=== PATIENT | male | born 1955 | race African-American/Black ===

== ENCOUNTER 2018-02-01 01:36 | Inpatient (IN) | payer SELFPAY ==
[~2018-02-01] VITALS: Ht 172.7 cm; Wt 61.2 kg
--- NOTE | 2018-02-01 02:25 | PHYS DOC ---
Adult General Chief Complaint Chief Complaint: ALTERED MENTAL STATUS HPI HPI Patient is a 62-year-old male who presents with report of mental status change that has been worsening over the last several weeks. Family indicates that they had gotten a call tonight indicating that patient was trying to get ready for work and patient has been retired for quite some time now. Patient denies being in any pain. He does have a cough that family says is chronic. Additional history is somewhat limited due to patient confusion. Review of Systems Review of Systems Constitutional: Denies fever or chills [] Respiratory: Admits to cough[] Cardiovascular: Denies chest pain[] GI: Denies abdominal pain, nausea, vomiting or diarrhea. Admits to constipation. [] Musculoskeletal: Denies back pain or joint pain [] Integument: Denies rash or skin lesions [] Neurologic: Denies headache, focal weakness or sensory changes [] All other systems were reviewed and found to be within normal limits, except as documented in this note. Current Medications Current Medications Current Medications Medications (Trade) Dose Ordered Sig/Manuel Start Time Stop Time Status Last Admin Dose Admin Albuterol/ Ipratropium (Duoneb) 3 ml 1X ONCE 02/01/18 02:30 02/01/18 02:39 DC 02/01/18 02:36 3 ML Methylprednisolone Sodium Succinate (SOLU-Medrol 125MG VIAL) 125 mg 1X ONCE 02/01/18 02:30 02/01/18 02:39 DC 02/01/18 02:36 125 MG Sodium Chloride 1,000 ml @ 1,000 mls/hr 1X ONCE 02/01/18 02:30 02/01/18 03:29 DC 02/01/18 02:27 1,000 MLS/HR Allergies Allergies Allergies Coded Allergies Type Severity Reaction Last Updated Verified No Known Drug Allergies 02/01/18 No Physical Exam Physical Exam Constitutional: Awake and alert in no acute distress, non-toxic appearance. [] HENT: Normocephalic, atraumatic, bilateral external ears normal, oropharynx dry , no oral exudates, nose normal. [] Eyes: PERRLA, EOMI, conjunctiva normal, no discharge. [] Neck: Normal range of motion, no tenderness, supple, no stridor. [] Cardiovascular:Heart rate regular rhythm [] Lungs & Thorax: There are diminished breath sounds noted bilaterally. There are coarse rhonchi in the left lower lung base.[] Abdomen: Bowel sounds normal, soft, no tenderness. [] Skin: Warm, dry, no erythema, no rash. [] Extremities: No tenderness, no cyanosis, no clubbing, ROM intact, no edema. [] Neurologic: Disoriented to person, place and time, normal motor function, normal sensory function, no focal deficits noted. [] Current Patient Data Vital Signs Vital Signs Date Time Temp Pulse Resp B/P (MAP) Pulse Ox O2 Delivery O2 Flow Rate FiO2 02/01/18 02:36 99 Room Air 02/01/18 02:01 98.1 103 20 150/75 (100) 98.1 Lab Values Laboratory Tests Test 02/01/18 01:51 02/01/18 02:20 02/01/18 03:40 Urine Collection Type Unknown Urine Color Yellow Urine Clarity Clear Urine pH 6.5 Urine Specific [place] <=1.005 Urine Protein Negative mg/dL (NEG-TRACE) Urine Glucose (UA) Negative mg/dL (NEG) Urine Ketones (Stick) Negative mg/dL (NEG) Urine Blood Negative (NEG) Urine Nitrite Negative (NEG) Urine Bilirubin Negative (NEG) Urine Urobilinogen Dipstick 0.2 mg/dL (0.2 mg/dL) Urine Leukocyte Esterase Negative (NEG) Urine RBC 0 /HPF (0-2) Urine WBC Occ /HPF (0-4) Urine Squamous Epithelial Cells Occ /LPF Urine Bacteria 0 /HPF (0-FEW) White Blood Count 4.1 x10^3/uL (4.0-11.0) Red Blood Count 4.18 x10^6/uL (4.30-5.70) L Hemoglobin 14.0 g/dL (13.0-17.5) Hematocrit 40.1 % (39.0-53.0) Mean Corpuscular Volume 96 fL (79-100) Mean Corpuscular Hemoglobin 34 pg (25-35) Mean Corpuscular Hemoglobin Concent 35 g/dL (31-37) Red Cell Distribution Width 12.0 % (11.5-14.5) Platelet Count 256 x10^3/uL (140-400) Neutrophils (%) (Auto) 84 % (31-73) H Lymphocytes (%) (Auto) 10 % (24-48) L Monocytes (%) (Auto) 5 % (0-9) Eosinophils (%) (Auto) 1 % (0-3) Basophils (%) (Auto) 1 % (0-3) Neutrophils # (Auto) 3.4 x10^3uL (1.8-7.7) Lymphocytes # (Auto) 0.4 x10^3/uL (1.0-4.8) L Monocytes # (Auto) 0.2 x10^3/uL (0.0-1.1) Eosinophils # (Auto) 0.0 x10^3/uL (0.0-0.7) Basophils # (Auto) 0.0 x10^3/uL (0.0-0.2) Platelet Estimate Pending Prothrombin Time 14.0 SEC (11.7-14.0) Prothrombin Time INR 1.1 (0.8-1.1) Sodium Level 122 mmol/L (136-145) L Potassium Level 3.8 mmol/L (3.5-5.1) Chloride Level 82 mmol/L (98-107) L Carbon Dioxide Level 29 mmol/L (21-32) Anion Gap 11 (6-14) Blood Urea Nitrogen 7 mg/dL (8-26) L Creatinine 0.8 mg/dL (0.7-1.3) Estimated GFR (Cockcroft-Gault) 117.8 BUN/Creatinine Ratio 9 (6-20) Glucose Level 128 mg/dL (70-99) H Calcium Level 9.7 mg/dL (8.5-10.1) Magnesium Level 1.9 mg/dL (1.8-2.4) Total Bilirubin 0.7 mg/dL (0.2-1.0) Aspartate Amino Transferase (AST) 36 U/L (15-37) Alanine Aminotransferase (ALT) 33 U/L (16-63) Alkaline Phosphatase 59 U/L (46-116) Troponin I Quantitative < 0.017 ng/mL (0.000-0.055) PI-Ltw-Y-Type Natriuretic Peptide 193 pg/mL (0-124) H Total Protein 8.1 g/dL (6.4-8.2) Albumin 3.8 g/dL (3.4-5.0) Albumin/Globulin Ratio 0.9 (1.0-1.7) L Ammonia < 10 mcmol/L (11-34) L Laboratory Tests 02/01/18 02:20 Laboratory Tests 02/01/18 02:20 EKG EKG [] Interpretation Time: EKG demonstrates mild sinus tachycardia with rate of 102. There is a nonspecific intraventricular conduction delay Radiology/Procedures Radiology/Procedures [] Impressions: Chest x-ray demonstrates right upper and lower patchy opacity which appears to represent pneumonia Course & Med Decision Making Course & Med Decision Making Pertinent Labs and Imaging studies reviewed. (See chart for details) [] Dragon Disclaimer Dragon Disclaimer This electronic medical record was generated, in whole or in part, using a voice recognition dictation system. Departure Departure Impression: Primary Impression: Hyponatremia Additional Impressions: Pneumonia Altered mental status Disposition: 09 ADMITTED INPATIENT Admitting Physician: Alex Denney Condition: IMPROVED Referrals: MARCIE CROCKETT (PCP) Problem Qualifiers Additional Impressions: Pneumonia Pneumonia type: due to unspecified organism Laterality: right Lung location : unspecified part of lung Qualified Codes: J18.9 - Pneumonia, unspecified organism Altered mental status Altered mental status type: disorientation Qualified Codes: R41.0 - Disorientation, unspecified NEDRA JIMENEZ Jr. DO Feb 01, 2018 02:25
[2018-02-01] MEDS ORDERED: methylPREDNISolone SOD SUCC PF 125 MG/2 ML VIAL. IV ONE (02:30)
[2018-02-01] MEDS ORDERED: IPRATRPIUM/ALBUTEROL 0.5/2.5MG 3 ML NEBU. NEB ONE (02:30)
[2018-02-01] MEDS ORDERED: IV NORMAL SALINE 1000ML BAG 1,000 ML IV ONE (02:30)
[2018-02-01 02:33] LABS: BASO % 1 % (0-3); EOS % 1 % (0-3); HEMATOCRIT 40.1 % (39.0-53.0); LYMPH # 0.4 x10^3/uL (1.0-4.8); LYMPH % 10 % (24-48); MEAN CORPUSCULAR HEMOGLOBIN 34 pg (25-35); MEAN CORPUSCULAR HGB CONC 35 g/dL (31-37); MEAN CORPUSCULAR VOLUME 96 fL (79-100); MONO # 0.2 x10^3/uL (0.0-1.1); MONO % 5 % (0-9); NEUT # 3.4 x10^3uL (1.8-7.7); NEUT % 84 % (31-73); PLATELET COUNT 256 x10^3/uL (140-400); RED BLOOD COUNT 4.18 x10^6/uL (4.30-5.70); WHITE BLOOD COUNT 4.1 x10^3/uL (4.0-11.0)
[2018-02-01 02:34] LABS: BILIRUBIN,URINE NEGATIVE (NEG); CLARITY,URINE CLEAR; COLOR,URINE YELLOW; NITRITE,URINE NEGATIVE (NEG); PH,URINE 6.5; PROTEIN,URINE NEGATIVE (NEG-TRACE); UROBILINOGEN,URINE 0.2 mg/dL (0.2 mg/dL)
[2018-02-01 02:45] LABS: BACTERIA,URINE 0 /HPF (0-FEW); RBC,URINE 0 /HPF (0-2); SQUAMOUS EPITHELIAL CELL,UR OCC /LPF; WBC,URINE OCC /HPF (0-4)
[2018-02-01 03:10] LABS: CALCIUM 9.7 mg/dL (8.5-10.1); CREATININE 0.8 mg/dL (0.7-1.3); GFR 117.8; POTASSIUM 3.8 mmol/L (3.5-5.1)
[2018-02-01 03:16] LABS: ALBUMIN 3.8 g/dL (3.4-5.0); ALBUMIN/GLOBULIN RATIO 0.9 (1.0-1.7); MAGNESIUM 1.9 mg/dL (1.8-2.4); TOTAL BILIRUBIN 0.7 mg/dL (0.2-1.0); TOTAL PROTEIN 8.1 g/dL (6.4-8.2)
--- NOTE | 2018-02-01 03:36 | RAD ---
CHEST PA LATERAL Technique: PA and lateral views of the chest were obtained. Clinical History: DYSPNEA
Comparison: May 12, 2006. Findings: There is emphysematous changes in the upper left lung. There is patchy opacities throughout the right lung and left lung base. The lungs are hyperinflated. Impression: 1. Hyperinflation and emphysematous changes in the left upper lung. 2. Right-sided opacities in left basal opacity could be pneumonia. Chronic pulmonary fibrosis is possible. Electronically signed by: Simone Brantley III, MD (02/01/2018 3:33 AM) [facility]
[2018-02-01] MEDS ORDERED: ACETAMINOPHEN 325 MG TABLET. PO PRN (04:15)
[2018-02-01 04:32] LABS: % BANDS 4 % (0-9); % EOS 1 % (0-5); % LYMPHS 7 % (24-48); % MONOS 4 % (0-10); % SEGS 84 % (35-66); PLT ESTIMATE ADEQUATE (ADEQUATE)
--- NOTE | 2018-02-01 04:54 | EKG ---
[facility] [address] [place] [address] Test Date: 2018-02-01 Test Time: 02:40:04 Pat Name: KODY UP Department: Room: Gender: M Hand Umbrella Tipper: : 1955 Requested By: NEDRA JIMENEZ Order Number: [id number] Reading MD: Measurements Intervals [place] Rate: 101 P: 69 AL: 148 QRS: -50 QRSD: 130 T: 78 QT: 380 QTc: 500 Interpretive Statements SINUS TACHYCARDIA INDETERMINATE AXIS NON SPECIFIC INTRAVENTRICULAR BLOCK RVH WITH REPOLARIZATION ABNORMALITY QRS(T) CONTOUR ABNORMALITY CONSIDER ANTEROSEPTAL MYOCARDIAL DAMAGE ABNORMAL ECG No previous ECG available for comparison
[2018-02-01] MEDS ORDERED: AZITHROMYCIN 250 MG TABLET. PO ONE (05:00)
[2018-02-01] MEDS: IV NORMAL SALINE 1000ML BAG 1,000 ML IV SCH ×4 (05:56→22:20)
[2018-02-01 07:00] VITALS: BP 113/69
[2018-02-01] MEDS: IPRATRPIUM/ALBUTEROL 0.5/2.5MG 3 ML NEBU. NEB SCH ×4 (08:00→19:29)
--- NOTE | 2018-02-01 09:19 | PDOC ---
Provider Note Provider Note H&P dictated . #[id number] FABIENNE ALLEN MD Feb 01, 2018 09:19
[2018-02-01] MEDS ORDERED: CONTRAST GIVEN. MC PRN (10:45)
[2018-02-01] MEDS ORDERED: IOHEXOL 300 MG/ML 100ML VIAL. IV ONE (10:45)
[2018-02-01] MEDS ORDERED: IOHEXOL 240 MG/ML 50ML VIAL. PO ONE (10:45)
[2018-02-01 11:00] VITALS: BP 133/83
[2018-02-01] MEDS: cefTRIAXone IV Push 1 GM VIAL. IVP SCH (11:16)
--- NOTE | 2018-02-01 12:03 | HP ---
ADMIT DATE: 02/01/2018 LOCATION: 410. REASON FOR ADMISSION TO THE HOSPITAL: Confusion, altered mental status, hyponatremia, chronic weight loss, COPD and abdominal pain. HISTORY OF PRESENT ILLNESS: The patient is a 62-year-old male, patient of Dr. Mejia. The patient does not remember when was the last time he saw and family thinks he has been confused lately for a couple of weeks and he has been retired and he was saying that he has to go to work and has been losing weight, has been having chronic smoker and also abdominal pain, was brought to the hospital. Sodium was low at 122, COPD, shows emphysema and some scarring in the lung and the patient was admitted to the hospital for further evaluation and treatment. PAST MEDICAL HISTORY: Looks like chronic COPD, denies any heart problems, has been having some abdominal pain on and off. PAST SURGICAL HISTORY: Denies any major surgeries. ALLERGIES: No known allergies. MEDICATIONS: None. PERSONAL HISTORY: Smoked at least 1 pack for 40 years, still smokes. Denies alcohol. Denies any street drugs. FAMILY HISTORY: Unremarkable. He says his from cancer 10 years ago. REVIEW OF SYSTEMS: He has abdominal pain, has been losing weight and denies any fever. PHYSICAL EXAMINATION: GENERAL: The patient looks chronically sick. VITAL SIGNS: Temperature 98, pulse 103, respirations 20, blood pressure 150/75, 98% on room air. HEENT: Head is atraumatic. Pupils equal. Oral cavity: No congestion. NECK: Supple. Thyroid not elevated. CHEST: Symmetrical, COPD pattern. CARDIOVASCULAR: S1, S2. LUNGS: Diminished breath sounds. ABDOMEN: Soft, bowel sounds present, no mass palpable. EXTERNAL GENITALIA: No [place]. RECTAL: Deferred. EXTREMITIES: No calf tenderness, no edema. Pulses 1+. NEUROLOGIC: Moving all extremities. The patient when asked the question, circumferential, does not answer the question and the patient's sister is at the bedside. LABORATORY DATA: Shows a white count of 4, hemoglobin 14, platelets 256. INR 1.1. Electrolytes show sodium 122, potassium 3.8, chloride 82, bicarbonate 29, BUN 21, creatinine 0.8, glucose 128, magnesium 1.9, bilirubin 0.7. LFTs were normal. Urine was negative. Chest x-ray shows emphysematous changes in the left upper lung, right-sided opacity, chronic pulmonary fibrosis also possible. FINAL IMPRESSION: 1. Confusion. 2. Hyponatremia. 3. Chronic emphysema. 4. Scarring in the lungs, possible pneumonitis. 5. Weight loss. 6. Smoking history. PLAN: At this time was admit to hospital. Patient was given 1 liter of normal saline and will check electrolytes again in 4 hours and IV fluids, normal saline. We will also have Pulmonary consult, CT scan and see how the patient's condition improves in the next couple of days. FABIENNE ALLEN MD DR: NEDRA/spenser JOB#: [id number] / [id number] MARCIE Case
--- NOTE | 2018-02-01 14:25 | RAD ---
PQRS Compliance statement: One or more of the following individualized dose reduction techniques were utilized for this examination: 1. Automated exposure control. 2. Adjustment of the mA and/or kV according to patient size. 3. Use of iterative reconstruction technique. Indication:Weight loss.copd,abd pain TECHNIQUE: CT chest, abdomen and pelvis with IV contrast with multiplanar reformats. COMPARISON: CT chest from 12/29/2003 FINDINGS: CT chest: Heart is normal in size. No pericardial or pleural effusion. Cachectic patient. No enlarged axillary, mediastinal or hilar adenopathy. Severe diffuse emphysema with large bullae. No pneumothorax. No suspicious bony lesion. CT abdomen pelvis: Liver, spleen, gallbladder, pancreas, adrenals within normal limits. No nephrolithiasis or hydronephrosis. No enlarged retroperitoneal or pelvic adenopathy. No free pelvic fluid or ascites. No bowel obstruction. Sigmoid diverticulosis. No pneumoperitoneum. No suspicious bony lesion. IMPRESSION: 1. Severe emphysema with large bullae. 2. Otherwise no acute findings. Electronically signed by: Wolfgang Menjivar DO (02/01/2018 2:23 PM) [facility]
--- NOTE | 2018-02-01 14:30 | RAD ---
PQRS Compliance statement: One or more of the following individualized dose reduction techniques were utilized for this examination: 1. Automated exposure control. 2. Adjustment of the mA and/or kV according to patient size. 3. Use of iterative reconstruction technique. Indication:CONFUSION TECHNIQUE: CT head without and with IV contrast COMPARISON:None FINDINGS: No pathologic extra-axial or intra-axial fluid collection. The ventricles and basal cisterns are within normal limits. No acute intracranial bleed. No focal enhancing metastatic spine lesions in the brain. There is mild confluent low-attenuation is seen in the periventricular and deep white matter. No focal loss of murcia-white differentiation. The dural venous sinuses are patent. Orbits within normal limits. No suspicious calvarial lesion. Visualized paranasal sinuses and mastoid air cells are clear. IMPRESSION: No acute findings. Electronically signed by: Wolfgang Menjivar DO (02/01/2018 2:27 PM) [facility]
[2018-02-01 14:32] LABS: CALCIUM 9.4 mg/dL (8.5-10.1); CREATININE 0.7 mg/dL (0.7-1.3); GFR 137.4; POTASSIUM 4.2 mmol/L (3.5-5.1)
[2018-02-01 15:00] VITALS: BP 109/67
[2018-02-01] MEDS: methylPREDNISolone SOD SUCC PF 40 MG/ML VIAL. IV SCH ×2 (15:02→22:17)
[2018-02-01 19:00] VITALS: BP 134/81
[2018-02-01 23:00] VITALS: BP 111/63
[2018-02-02 03:00] VITALS: BP 124/86
[2018-02-02 05:21] LABS: BASO % 0 % (0-3); EOS % 0 % (0-3); HEMATOCRIT 38.6 % (39.0-53.0); HEMOGLOBIN 13.1 g/dL (13.0-17.5); LYMPH # 0.3 x10^3/uL (1.0-4.8); LYMPH % 5 % (24-48); MEAN CORPUSCULAR HEMOGLOBIN 33 pg (25-35); MEAN CORPUSCULAR HGB CONC 34 g/dL (31-37); MEAN CORPUSCULAR VOLUME 98 fL (79-100); MONO # 0.1 x10^3/uL (0.0-1.1); MONO % 2 % (0-9); NEUT # 4.6 x10^3uL (1.8-7.7); NEUT % 92 % (31-73); PLATELET COUNT 232 x10^3/uL (140-400); RED BLOOD COUNT 3.96 x10^6/uL (4.30-5.70); RED CELL DISTRIBUTION WIDTH 12.7 % (11.5-14.5)
[2018-02-02] MEDS: IV NORMAL SALINE 1000ML BAG 1,000 ML IV SCH ×2 (05:34→21:18)
[2018-02-02] MEDS: methylPREDNISolone SOD SUCC PF 40 MG/ML VIAL. IV SCH ×3 (05:34→21:17)
[2018-02-02 06:10] LABS: CALCIUM 9.3 mg/dL (8.5-10.1); CREATININE 0.7 mg/dL (0.7-1.3); GFR 137.4; POTASSIUM 4.8 mmol/L (3.5-5.1)
[2018-02-02 07:00] VITALS: BP 142/88
[2018-02-02] MEDS: IPRATRPIUM/ALBUTEROL 0.5/2.5MG 3 ML NEBU. NEB SCH ×4 (07:02→18:37)
[2018-02-02] MEDS: cefTRIAXone IV Push 1 GM VIAL. IVP SCH (08:48)
[2018-02-02] MEDS: AZITHROMYCIN 250 MG in IV NORMAL SALINE 250ML 250 ML IV SCH (08:49)
--- NOTE | 2018-02-02 09:47 | PDOC ---
PROGRESS NOTES Subjective Subjective feels better today ,c/o constipation Objective Objective Vital Signs Date Time Temp Pulse Resp B/P (MAP) Pulse Ox O2 Delivery O2 Flow Rate FiO2 02/02/18 07:00 98.2 96 16 142/88 (106) 92 Room Air 98.2 Intake and Output 02/02/18 07:00 Intake Total 1200 ml Balance 1200 ml Intake Oral 200 ml IV Total 1000 ml # Voids 1 Physical Exam Abdomen: Normal bowel sounds, Soft Heart: Regular rate, Normal S1 Extremities: No clubbing General: Alert HEENT: Atraumatic Lungs: Other (copd chest, lungd dec breath sounds) Neck: Supple Neuro: Normal speech Psych/Mental Status: Mental status NL Skin: No breakdown Diagnosis Problem List Problems Medical Problems: (1) Altered mental status Status: Acute (2) Pneumonia Status: Acute Assessment Assessment Problems Medical Problems: (1) Altered mental status Status: Acute (2) Pneumonia Status: Acute FINAL IMPRESSION: 1. Confusion . 2. Hyponatremia.Na 123 3. Chronic emphysema. 4. Scarring in the lungs, possible pneumonitis. 5. Weight loss. 6. Smoking history. PLAN: CT head neg. ct chest sever emphysema and bulla. ct abd diverticulosis. NA 137 today corrected. pul consult GI consult spoke with oncology,recommended colnscopy for weight loss. home tomorrow? Plan Plan of Care Problems Medical Problems: (1) Altered mental status Status: Acute (2) Pneumonia Status: Acute Comment Review of Relevant I have reviewed the following items parviz (where applicable) has been applied. Labs Laboratory Tests Test 02/01/18 13:55 02/02/18 03:25 Sodium Level 133 mmol/L (136-145) 137 mmol/L (136-145) Potassium Level 4.2 mmol/L (3.5-5.1) 4.8 mmol/L (3.5-5.1) Chloride Level 95 mmol/L (98-107) 100 mmol/L (98-107) Carbon Dioxide Level 30 mmol/L (21-32) 30 mmol/L (21-32) Anion Gap 8 (6-14) 7 (6-14) Blood Urea Nitrogen 10 mg/dL (8-26) 14 mg/dL (8-26) Creatinine 0.7 mg/dL (0.7-1.3) 0.7 mg/dL (0.7-1.3) Estimated GFR (Cockcroft-Gault) 137.4 137.4 Glucose Level 111 mg/dL (70-99) 103 mg/dL (70-99) Calcium Level 9.4 mg/dL (8.5-10.1) 9.3 mg/dL (8.5-10.1) White Blood Count 5.0 x10^3/uL (4.0-11.0) Red Blood Count 3.96 x10^6/uL (4.30-5.70) Hemoglobin 13.1 g/dL (13.0-17.5) Hematocrit 38.6 % (39.0-53.0) Mean Corpuscular Volume 98 fL (79-100) Mean Corpuscular Hemoglobin 33 pg (25-35) Mean Corpuscular Hemoglobin Concent 34 g/dL (31-37) Red Cell Distribution Width 12.7 % (11.5-14.5) Platelet Count 232 x10^3/uL (140-400) Neutrophils (%) (Auto) 92 % (31-73) Lymphocytes (%) (Auto) 5 % (24-48) Monocytes (%) (Auto) 2 % (0-9) Eosinophils (%) (Auto) 0 % (0-3) Basophils (%) (Auto) 0 % (0-3) Neutrophils # (Auto) 4.6 x10^3uL (1.8-7.7) Lymphocytes # (Auto) 0.3 x10^3/uL (1.0-4.8) Monocytes # (Auto) 0.1 x10^3/uL (0.0-1.1) Eosinophils # (Auto) 0.0 x10^3/uL (0.0-0.7) Basophils # (Auto) 0.0 x10^3/uL (0.0-0.2) Microbiology 02/01/18 Blood Culture - Preliminary, Resulted NO GROWTH AFTER 1 DAY Medications Current Medications Azithromycin 250 mg/Sodium Chloride 250 ml @ 250 mls/hr Q24H IV Last administered on 02/02/18at 08:49; Start 02/02/18 at 09:00 Ceftriaxone Sodium 1 gm/ Dextrose 50 ml @ 100 mls/hr Q24H IV ; Start 02/02/18 at 08:00; Status UNV Ceftriaxone Sodium (Rocephin) 1 gm Q24H IVP Last administered on 02/02/18at 08: 48; Start 02/01/18 at 10:00 Info (CONTRAST GIVEN -- Rx MONITORING) 1 each PRN DAILY PRN MC SEE COMMENTS; Start 02/01/18 at 10:45; Stop 02/03/18 at 10:44 Iohexol (Omnipaque 240 Mg/ml) 30 ml 1X ONCE PO Last administered on at 10:45; Start 02/01/18 at 10:45; Stop 02/01/18 at 10:46; Status DC Iohexol (Omnipaque 300 Mg/ml) 75 ml 1X ONCE IV Last administered on at 12:34; Start 02/01/18 at 10:45; Stop 02/01/18 at 10:46; Status DC Methylprednisolone Sodium Succinate (SOLU-Medrol 40MG VIAL) 40 mg Q8HRS IV ; Start 02/02/18 at 14:00 Methylprednisolone Sodium Succinate (SOLU-Medrol 40MG VIAL) 80 mg Q8HRS IV Last administered on 02/02/18at 05:34; Start 02/01/18 at 14:00; Stop 02/02/18 at 09:05; Status DC Vitals/I & O Vital Sign - Last 24 Hours 02/01/18 02/01/18 02/01/18 02/01/18 11:00 11:21 15:00 15:26 Temp 98.8 99.0 98.8 99.0 Pulse 100 107 Resp 18 16 B/P (MAP) 133/83 (100) 109/67 (81) Pulse Ox 96 95 91 O2 Delivery Room Air Room Air Room Air Room Air 02/01/18 02/01/18 02/01/18 02/01/18 19:00 19:30 19:45 23:00 Temp 99.1 100.0 99.1 100.0 Pulse 90 107 Resp 16 16 B/P (MAP) 134/81 (98) 111/63 (79) Pulse Ox 92 98 92 O2 Delivery Room Air Room Air Room Air Room Air 02/02/18 02/02/18 02/02/18 03:00 06:50 07:00 Temp 98.5 98.2 98.5 98.2 Pulse 112 96 Resp 16 16 B/P (MAP) 124/86 (99) 142/88 (106) Pulse Ox 92 89 92 O2 Delivery Room Air Room Air Room Air Intake and Output 02/01/18 02/01/18 02/02/18 15:00 23:00 07:00 Intake Total 200 ml 1000 ml Balance 200 ml 1000 ml FABIENNE ALLEN MD Feb 02, 2018 09:47
--- NOTE | 2018-02-02 10:07 | PDOC ---
Provider Note Provider Note dictated WADE SHEPPARD MD Feb 02, 2018 10:07
--- NOTE | 2018-02-02 10:23 | CONS ---
DATE OF CONSULTATION: ATTENDING PHYSICIAN: Dr. Denney. REASON FOR CONSULTATION: Dyspnea. HISTORY OF PRESENT ILLNESS: The patient is a 62-year-old male who has history of tobacco use and suspected underlying COPD, who was brought into the hospital with some confusion for the last few weeks. There is some subjective weight loss. The patient denies any chronic persistent cough. No chest pain. He has occasional shortness of breath. No headaches, no nausea or vomiting, but he had some abdominal pain and has some constipation as well. The patient has smoked for at least 1 pack for 40 years. No dysuria. No focal weakness. No skin rash. A CT chest was performed and was reviewed by me. The patient had extensive bullous lung disease with evidence of severe emphysema and some scarring. No definite consolidation observed. PAST MEDICAL HISTORY: Significant for history of severe bullous lung disease. PAST SURGICAL HISTORY: No recent surgeries. ALLERGIES: None. MEDICATIONS: All reviewed, as listed in the MRAD including antibiotics and bronchodilators. REVIEW OF SYSTEMS: Twelve-point system obtained. Pertinent positives discussed in my history of present illness, otherwise noncontributory. All systems that were negative were reviewed as well. FAMILY HISTORY: Noncontributory to lungs. SOCIAL HISTORY: Smoked for at least 1 pack on and off for 40 years. Still smokes. PHYSICAL EXAMINATION: VITAL SIGNS: Reviewed. His T-max was 100.0. Blood pressure stable, pulse ox 92% on room air. HEENT: Sclerae nonicteric. NECK: Supple. LUNGS: With diminished breath sounds, but no crackles, no wheezing. CARDIOVASCULAR: With a regular rate. ABDOMEN: Soft, nontender. EXTREMITIES: With no pitting edema. LABORATORY DATA: Reviewed. White cell count 5.0, hemoglobin 13.1 and platelets are 232. BUN and creatinine normal. IMPRESSION: 1. Confusion, probably related to hyponatremia, seems to have improved. 2. Low-grade fever, could be related to acute bronchitis. No definite consolidation seen on the CT chest. 3. Extensive end-stage bullous lung disease and emphysema. 4. Subjective weight loss, but no obvious pathology seen in the lungs. RECOMMENDATIONS: 1. Smoking cessation counseling was provided. 2. Antibiotics, which can be deescalated in next 24 hours. 3. Follow up on sodium. It is improved. 4. No obvious malignancy seen on CT chest, abdomen and pelvis. 5. Pulmonary function tests as an outpatient. 6. Could be discharged in the next 24 hours. WADE SHEPPARD MD DR: BAHMAN/spenser JOB#: [id number] / [id number] JANIS
[2018-02-02 11:00] VITALS: BP 121/68
--- NOTE | 2018-02-02 12:06 | PDOC2 ---
GI CONSULT Reason For Consult: Diverticulosis HPI: HPI: 62 y/o male evaluated in ER for AMS and admitted. Suspect historian this morning. Has had a cough for awhile, has lost weight since retiring. Imaging notes severe emphysema. GI-robles, he says he has had a change in bowel habits since retiring (not sure when). Feels constipation, has to strain. Describes both "pebble" stools and "watery." Feels the urge to stool today but can't. Last stooled at home, unclear exactly when. Tells me drinking Boost, smoking cigarettes, and stool softener pills help. Has some upper abdominal "tightness " and "funny feeling" - difficult to say if this is worse with eating or improved with stooling, does says he's "cut down on eating." Denies n/v, dysphagia, and reflux/heartburn. Has lost 50 pounds in the past year. Denies bleeding. No previous EGD or colonoscopy. No liver, GB, or pancreas history. Takes a vitamin and Advil every morning (?for abd pain), also sometimes ASA. PMH: PMH: emphysema chart mentions "lung surgery" - he denies FH: Family History: No pertinent hx (denies cancers) Social History: Smoke: 1 pack per day ALCOHOL: other (used to drink some, none for years) Drugs: None ROS: GEN: Denies fevers, chills, sweats HEENT: Denies blurred vision, sore throat CV: Denies chest pain RESP: +cough GI: Per HPI : Denies hematuria, dysuria ENDO: +weight loss NEURO: Denies confusion, dizziness MSK: Denies weakness, joint pain/swelling SKIN: Denies jaundice, pruritus Vitals: Vitals: Vital Signs Date Time Temp Pulse Resp B/P (MAP) Pulse Ox O2 Delivery O2 Flow Rate FiO2 02/02/18 07:00 98.2 96 16 142/88 (106) 92 Room Air 98.2 Labs: Labs: Laboratory Tests Test 02/01/18 13:55 02/02/18 03:25 Sodium Level 133 mmol/L (136-145) 137 mmol/L (136-145) Potassium Level 4.2 mmol/L (3.5-5.1) 4.8 mmol/L (3.5-5.1) Chloride Level 95 mmol/L (98-107) 100 mmol/L (98-107) Carbon Dioxide Level 30 mmol/L (21-32) 30 mmol/L (21-32) Anion Gap 8 (6-14) 7 (6-14) Blood Urea Nitrogen 10 mg/dL (8-26) 14 mg/dL (8-26) Creatinine 0.7 mg/dL (0.7-1.3) 0.7 mg/dL (0.7-1.3) Estimated GFR (Cockcroft-Gault) 137.4 137.4 Glucose Level 111 mg/dL (70-99) 103 mg/dL (70-99) Calcium Level 9.4 mg/dL (8.5-10.1) 9.3 mg/dL (8.5-10.1) White Blood Count 5.0 x10^3/uL (4.0-11.0) Red Blood Count 3.96 x10^6/uL (4.30-5.70) Hemoglobin 13.1 g/dL (13.0-17.5) Hematocrit 38.6 % (39.0-53.0) Mean Corpuscular Volume 98 fL (79-100) Mean Corpuscular Hemoglobin 33 pg (25-35) Mean Corpuscular Hemoglobin Concent 34 g/dL (31-37) Red Cell Distribution Width 12.7 % (11.5-14.5) Platelet Count 232 x10^3/uL (140-400) Neutrophils (%) (Auto) 92 % (31-73) Lymphocytes (%) (Auto) 5 % (24-48) Monocytes (%) (Auto) 2 % (0-9) Eosinophils (%) (Auto) 0 % (0-3) Basophils (%) (Auto) 0 % (0-3) Neutrophils # (Auto) 4.6 x10^3uL (1.8-7.7) Lymphocytes # (Auto) 0.3 x10^3/uL (1.0-4.8) Monocytes # (Auto) 0.1 x10^3/uL (0.0-1.1) Eosinophils # (Auto) 0.0 x10^3/uL (0.0-0.7) Basophils # (Auto) 0.0 x10^3/uL (0.0-0.2) Allergies: Coded Allergies: No Known Drug Allergies (Unverified , 02/01/18) Medications: Current Medications Medications (Trade) Dose Ordered Sig/Manuel Route PRN Reason Start Time Stop Time Status Last Admin Dose Admin Azithromycin 250 mg/Sodium Chloride 250 ml @ 250 mls/hr Q24H IV 02/02/18 09:00 02/02/18 08:49 Methylprednisolone Sodium Succinate (SOLU-Medrol 40MG VIAL) 80 mg Q8HRS IV 02/01/18 14:00 02/02/18 09:05 DC 02/02/18 05:34 Albuterol/ Ipratropium (Duoneb) 3 ml RTQID NEB 02/02/18 12:00 02/02/18 10:53 Imaging: Imaging: CXR Impression: 1. Hyperinflation and emphysematous changes in the left upper lung. 2. Right-sided opacities in left basal opacity could be pneumonia. Chronic pulmonary fibrosis is possible. Chest/A/P CT FINDINGS: CT chest: Heart is normal in size. No pericardial or pleural effusion. Cachectic patient. No enlarged axillary, mediastinal or hilar adenopathy. Severe diffuse emphysema with large bullae. No pneumothorax. No suspicious bony lesion. CT abdomen pelvis: Liver, spleen, gallbladder, pancreas, adrenals within normal limits. No nephrolithiasis or hydronephrosis. No enlarged retroperitoneal or pelvic adenopathy. No free pelvic fluid or ascites. No bowel obstruction. Sigmoid diverticulosis. No pneumoperitoneum. No suspicious bony lesion. IMPRESSION: 1. Severe emphysema with large bullae. 2. Otherwise no acute findings. Head CT IMPRESSION: No acute findings. PE: GEN: NAD, thin, up to chair HEENT: Atraumatic, PERRL LUNGS: productive cough HEART: RRR ABD: NABS, S/ND, vague epigastric discomfort - mild EXTREMITY: No edema SKIN: No rashes, no jaundice NEURO/PSYCH: A & O 3 - limited history A/P: A/P: AMS, hyponatremia (better), low grade fever Emphysema Change in bowel habits, ?dyspepsia CRC screen - none Diverticulosis NSAID use -- CT unrevealing, tolerating PO here. Try PPI. Okay to use Miralax or similar PRN. Can pursue outpt 'scopes. DERW HERNÁNDEZ Feb 02, 2018 12:06
[2018-02-02] MEDS ORDERED: POLYETHYLENE GLYCOL 3350 17 GM PACKET. PO PRN (13:15)
[2018-02-02 14:23] LABS: % LYMPHS 3 % (24-48); % MONOS 1 % (0-10); % SEGS 96 % (35-66); PLT ESTIMATE ADEQUATE (ADEQUATE)
[2018-02-02] MEDS: PANTOPRAZOLE 40 MG TABLET.DR. PO SCH (14:45)
[2018-02-02 15:00] VITALS: BP 132/80
[2018-02-02 19:00] VITALS: BP 133/78
[2018-02-02] MEDS: LACTOBACILLUS RHAMNOSUS GG 1 CAPSULE. PO SCH (21:18)
--- NOTE | 2018-02-02 21:41 | CONS ---
DATE OF CONSULTATION: 02/02/2018 REQUESTING PHYSICIAN: Dr. Alex Denney. REASON FOR CONSULTATION: Weight loss and to evaluate for malignancy. HISTORY OF PRESENT ILLNESS: The patient is a 62-year-old -[place] gentleman who was admitted to [facility] on 02/01/2018 with confusion of 2 weeks' duration. He has also been losing weight. He has had abdominal discomfort. At the time of admission, his sodium was only 122. The patient is unable to say exactly how much weight he has lost. He underwent a CT scan of the head on 02/01/2018, which did not reveal any tumors or malignancy. CT chest, abdomen and pelvis on 02/01/2018 is negative for malignancy. Severe emphysema was noted. Pulmonary consultation was also obtained for evaluation of dyspnea. PAST MEDICAL HISTORY: Severe bullous lung disease. PERSONAL AND SOCIAL HISTORY: History of smoking 1 pack of cigarettes per day for 40 years and he continues to smoke. FAMILY HISTORY: Unremarkable. No history of cancer. REVIEW OF SYSTEMS: A 12-point review of system was performed. Pertinent positives are mentioned in the history of present illness. Rest of the system review is negative. PHYSICAL EXAMINATION: GENERAL APPEARANCE: The patient is a 62-year-old -[place] gentleman who appears poorly nourished and in no acute cardiorespiratory distress. VITAL SIGNS: Blood pressure 142/88, temperature 98.2. HEENT: Head: Atraumatic, normocephalic. Eyes: No icterus. NECK: Supple. CHEST: Bilaterally symmetrical. HEART: S1, S2 normal. ABDOMEN: Soft, nontender. CENTRAL NERVOUS SYSTEM: Alert and awake, but not fully oriented. MUSCULOSKELETAL: No joint effusions. PSYCHOLOGIC: Mood and affect are appropriate, but he is not oriented. LABORATORY DATA: WBC 5, hemoglobin 13.1, platelet count 232. Creatinine 0.7, calcium 9.3, total bilirubin 0.7, AST 36, ALT 33, alkaline phosphatase 59, total protein 8.1, albumin 3.8. IMPRESSION AND PLAN: 1. Weight loss, which I suspect is due to chronic obstructive pulmonary disease and emphysema. CT scan of the head, chest, abdomen and pelvis on 02/01/2018 does not reveal any evidence of malignancy. CBC and CMP are unremarkable except for hyponatremia with sodium of 122. I have also recommended a screening colonoscopy if he has not had one. I discussed with Dr. Denney. 2. Hyponatremia. Continue management per Dr. Denney. 3. Emphysema. Appreciate pulmonary consultation. GEO PINEDO MD DR: CHI/spenser JOB#: [id number] / [id number]
[2018-02-02 23:00] VITALS: BP 131/78
[2018-02-03 03:00] VITALS: BP 153/97
[2018-02-03 05:33] LABS: CALCIUM 9.1 mg/dL (8.5-10.1); CREATININE 0.7 mg/dL (0.7-1.3); GFR 137.4; POTASSIUM 4.9 mmol/L (3.5-5.1)
[2018-02-03] MEDS: methylPREDNISolone SOD SUCC PF 40 MG/ML VIAL. IV SCH (05:46)
[2018-02-03] MEDS: PANTOPRAZOLE 40 MG TABLET.DR. PO SCH (05:46)
[2018-02-03] MEDS: IPRATRPIUM/ALBUTEROL 0.5/2.5MG 3 ML NEBU. NEB SCH ×4 (05:50→19:32)
[2018-02-03 07:00] VITALS: BP 139/91
[2018-02-03] MEDS: AZITHROMYCIN 250 MG in IV NORMAL SALINE 250ML 250 ML IV SCH (08:13)
[2018-02-03] MEDS: LACTOBACILLUS RHAMNOSUS GG 1 CAPSULE. PO SCH ×2 (08:13→21:02)
[2018-02-03] MEDS: cefTRIAXone IV Push 1 GM VIAL. IVP SCH (08:14)
--- NOTE | 2018-02-03 09:57 | PDOC ---
PROGRESS NOTES Subjective Subjective no new complaints, Objective Objective Vital Signs Date Time Temp Pulse Resp B/P (MAP) Pulse Ox O2 Delivery O2 Flow Rate FiO2 02/03/18 07:00 98.1 96 16 139/91 (107) 95 Room Air 98.1 Intake and Output 02/03/18 07:00 Intake Total 660 ml Output Total 3700 ml Balance -3040 ml Intake Oral 660 ml Output Urine Total 3700 ml # Voids 1 Physical Exam Abdomen: Normal bowel sounds, Soft Heart: Regular rate, Normal S1 Extremities: No clubbing General: Alert HEENT: Atraumatic Lungs: Other (copd chest, lungd dec breath sounds) Neck: Supple Neuro: Normal speech Psych/Mental Status: Mental status NL Skin: No breakdown Diagnosis Problem List Problems Medical Problems: (1) Altered mental status Status: Acute (2) Pneumonia Status: Acute Assessment Assessment Problems Medical Problems: (1) Altered mental status Status: Acute (2) Pneumonia Status: Acute FINAL IMPRESSION: 1. Confusion looks like chronic.?dementia 2. Hyponatremia.Na 123 3. Chronic emphysema. 4. Scarring in the lungs, possible pneumonitis. 5. Weight loss. 6. Smoking history. PLAN: CT head neg. ct chest sever emphysema and bulla. ct abd diverticulosis. Na 137 today corrected. pul consult appreciated GI consult noted ,needs colonoscopy out pt Neuro to see for dementia home today Plan Plan of Care Problems Medical Problems: (1) Altered mental status Status: Acute (2) Pneumonia Status: Acute Comment Review of Relevant I have reviewed the following items parviz (where applicable) has been applied. Labs Laboratory Tests Test 02/03/18 03:40 Sodium Level 138 mmol/L (136-145) Potassium Level 4.9 mmol/L (3.5-5.1) Chloride Level 100 mmol/L (98-107) Carbon Dioxide Level 30 mmol/L (21-32) Anion Gap 8 (6-14) Blood Urea Nitrogen 17 mg/dL (8-26) Creatinine 0.7 mg/dL (0.7-1.3) Estimated GFR (Cockcroft-Gault) 137.4 Glucose Level 101 mg/dL (70-99) Calcium Level 9.1 mg/dL (8.5-10.1) Microbiology 02/01/18 Blood Culture - Preliminary, Resulted NO GROWTH AFTER 2 DAYS Medications Current Medications Albuterol/ Ipratropium (Duoneb) 3 ml RTQID NEB Last administered on 02/03/18at 05:50; Start 02/02/18 at 12:00 Azithromycin (Zithromax) 250 mg DAILY PO ; Start 02/04/18 at 09:00 Lactobacillus Rhamnosus (Culturelle) 1 cap BID PO Last administered on at 08:13; Start 02/02/18 at 21:00 Methylprednisolone Sodium Succinate (SOLU-Medrol 40MG VIAL) 40 mg Q8HRS IV Last administered on 02/03/18at 05:46; Start 02/02/18 at 14:00; Stop 02/03/18 at 09:09; Status DC Pantoprazole Sodium (Protonix) 40 mg DAILYAC PO Last administered on at 05:46; Start 02/02/18 at 14:00 Polyethylene Glycol (miraLAX PACKET) 17 gm PRN DAILY PRN PO CONSTIPATION; Start 02/02/18 at 13:15 Prednisone (Prednisone) 10 mg DAILY PO ; Start 02/04/18 at 09:00 Vitals/I & O Vital Sign - Last 24 Hours 02/02/18 02/02/18 02/02/18 02/02/18 10:53 11:00 15:00 15:15 Temp 99.3 99.0 99.3 99.0 Pulse 95 91 Resp 18 14 B/P (MAP) 121/68 (85) 132/80 (97) Pulse Ox 89 91 93 O2 Delivery Room Air Room Air Room Air Room Air 02/02/18 02/02/18 02/02/18 02/03/18 19:00 20:00 23:00 03:00 Temp 98.5 98.2 97.8 98.5 98.2 97.8 Pulse 88 85 86 Resp 14 14 14 B/P (MAP) 133/78 (96) 131/78 (95) 153/97 (115) Pulse Ox 92 96 99 O2 Delivery Room Air Room Air Room Air Room Air 02/03/18 02/03/18 05:50 07:00 Temp 98.1 98.1 Pulse 96 Resp 16 B/P (MAP) 139/91 (107) Pulse Ox 95 O2 Delivery Room Air Room Air Intake and Output 02/02/18 02/02/18 02/03/18 15:00 23:00 07:00 Intake Total 240 ml 420 ml Output Total 650 ml 3050 ml Balance 240 ml -230 ml -3050 ml FABIENNE ALLEN MD Feb 03, 2018 09:57
--- NOTE | 2018-02-03 09:59 | PDOC ---
Subjective: Subjective: Tells me he's eating without issue and had a very small stool this morning. Feels well and wants to go home, but says someone told him he had to have surgery. Objective: Vital Signs: Vital Signs Date Time Temp Pulse Resp B/P (MAP) Pulse Ox O2 Delivery O2 Flow Rate FiO2 02/03/18 07:00 98.1 96 16 139/91 (107) 95 Room Air 98.1 Labs: Laboratory Tests Test 02/03/18 03:40 Sodium Level 138 mmol/L Potassium Level 4.9 mmol/L Chloride Level 100 mmol/L Carbon Dioxide Level 30 mmol/L Anion Gap 8 Blood Urea Nitrogen 17 mg/dL Creatinine 0.7 mg/dL Estimated GFR (Cockcroft-Gault) 137.4 Glucose Level 101 mg/dL Calcium Level 9.1 mg/dL BLOOD CULTURE Preliminary NO GROWTH AFTER 2 DAYS PE: GEN: NAD, up to chair LUNGS: room air - less coughing today HEART: RRR ABD: soft, non-tender NEURO/PSYCH: A &confused? A/P: Emphysema and weight loss ?dyspepsia - on PPI -- DC per primary. Would continue PPI and follow-up for outpt EGD and colonoscopy. DREW HERNÁNDEZ Feb 03, 2018 09:59
[2018-02-03] MEDS ORDERED: POLY17PO3 PO (10:03)
[2018-02-03] MEDS ORDERED: AZIT250T6 PO (10:03)
[2018-02-03] MEDS ORDERED: Pantoprazole PO (10:03)
[2018-02-03] MEDS ORDERED: PRED-220 PO (10:03)
--- NOTE | 2018-02-03 10:49 | PDOC ---
PROGRESS NOTES Subjective Subjective HPI - f/u of Weight loss ROS - no CP Objective Objective Vital Signs Date Time Temp Pulse Resp B/P (MAP) Pulse Ox O2 Delivery O2 Flow Rate FiO2 02/03/18 07:00 98.1 96 16 139/91 (107) 95 Room Air 98.1 Intake and Output 02/03/18 07:00 Intake Total 660 ml Output Total 3700 ml Balance -3040 ml Intake Oral 660 ml Output Urine Total 3700 ml # Voids 1 Physical Exam Heart: Normal S1, Normal S2 General: Alert Lungs: Clear to auscultation Neuro: Normal speech Assessment Assessment Problems Medical Problems: (1) Altered mental status Status: Acute (2) Pneumonia Status: Acute IMPRESSION AND PLAN: 1. Weight loss, which I suspect is due to chronic obstructive pulmonary disease and emphysema. CT scan of the head, chest, abdomen and pelvis on 02/01/2018 does not reveal any evidence of malignancy. CBC and CMP are unremarkable except for hyponatremia with sodium of 122. I have also recommended a screening colonoscopy if he has not had one. I discussed with Dr. Denney. Appreciate GI consult. 2. Hyponatremia. Continue management per Dr. Denney. Improving. 3. Emphysema. Appreciate pulmonary consultation. Comment Review of Relevant I have reviewed the following items parviz (where applicable) has been applied. Labs Laboratory Tests Test 02/01/18 13:55 02/02/18 03:25 02/03/18 03:40 Sodium Level 133 mmol/L (136-145) 137 mmol/L (136-145) 138 mmol/L (136-145) Potassium Level 4.2 mmol/L (3.5-5.1) 4.8 mmol/L (3.5-5.1) 4.9 mmol/L (3.5-5.1) Chloride Level 95 mmol/L (98-107) 100 mmol/L (98-107) 100 mmol/L (98-107) Carbon Dioxide Level 30 mmol/L (21-32) 30 mmol/L (21-32) 30 mmol/L (21-32) Anion Gap 8 (6-14) 7 (6-14) 8 (6-14) Blood Urea Nitrogen 10 mg/dL (8-26) 14 mg/dL (8-26) 17 mg/dL (8-26) Creatinine 0.7 mg/dL (0.7-1.3) 0.7 mg/dL (0.7-1.3) 0.7 mg/dL (0.7-1.3) Estimated GFR (Cockcroft-Gault) 137.4 137.4 137.4 Glucose Level 111 mg/dL (70-99) 103 mg/dL (70-99) 101 mg/dL (70-99) Calcium Level 9.4 mg/dL (8.5-10.1) 9.3 mg/dL (8.5-10.1) 9.1 mg/dL (8.5-10.1) White Blood Count 5.0 x10^3/uL (4.0-11.0) Red Blood Count 3.96 x10^6/uL (4.30-5.70) Hemoglobin 13.1 g/dL (13.0-17.5) Hematocrit 38.6 % (39.0-53.0) Mean Corpuscular Volume 98 fL (79-100) Mean Corpuscular Hemoglobin 33 pg (25-35) Mean Corpuscular Hemoglobin Concent 34 g/dL (31-37) Red Cell Distribution Width 12.7 % (11.5-14.5) Platelet Count 232 x10^3/uL (140-400) Neutrophils (%) (Auto) 92 % (31-73) Lymphocytes (%) (Auto) 5 % (24-48) Monocytes (%) (Auto) 2 % (0-9) Eosinophils (%) (Auto) 0 % (0-3) Basophils (%) (Auto) 0 % (0-3) Neutrophils # (Auto) 4.6 x10^3uL (1.8-7.7) Lymphocytes # (Auto) 0.3 x10^3/uL (1.0-4.8) Monocytes # (Auto) 0.1 x10^3/uL (0.0-1.1) Eosinophils # (Auto) 0.0 x10^3/uL (0.0-0.7) Basophils # (Auto) 0.0 x10^3/uL (0.0-0.2) Segmented Neutrophils % 96 % (35-66) Lymphocytes % 3 % (24-48) Monocytes % 1 % (0-10) Platelet Estimate Adequate (ADEQUATE) Laboratory Tests Test 02/03/18 03:40 Sodium Level 138 mmol/L (136-145) Potassium Level 4.9 mmol/L (3.5-5.1) Chloride Level 100 mmol/L (98-107) Carbon Dioxide Level 30 mmol/L (21-32) Anion Gap 8 (6-14) Blood Urea Nitrogen 17 mg/dL (8-26) Creatinine 0.7 mg/dL (0.7-1.3) Estimated GFR (Cockcroft-Gault) 137.4 Glucose Level 101 mg/dL (70-99) Calcium Level 9.1 mg/dL (8.5-10.1) Microbiology 02/01/18 Blood Culture - Preliminary, Resulted NO GROWTH AFTER 2 DAYS Medications Current Medications Sodium Chloride 1,000 ml @ 1,000 mls/hr 1X ONCE IV Last administered on 02/01at 02:27; Start 02/01/18 at 02:30; Stop 02/01/18 at 03:29; Status DC Albuterol/ Ipratropium (Duoneb) 3 ml 1X ONCE NEB Last administered on at 02:36; Start 02/01/18 at 02:30; Stop 02/01/18 at 02:39; Status DC Methylprednisolone Sodium Succinate (SOLU-Medrol 125MG VIAL) 125 mg 1X ONCE IV Last administered on 02/01/18at 02:36; Start 02/01/18 at 02:30; Stop at 02:39; Status DC Sodium Chloride 1,000 ml @ 50 mls/hr Q20H IV Last administered on 02/01/18at 05:56; Start 02/01/18 at 05:00; Stop 02/02/18 at 04:59; Status DC Acetaminophen (Tylenol) 650 mg PRN Q4HRS PRN PO FEVER; Start 02/01/18 at 04:15 ; Stop 02/02/18 at 04:15; Status DC Albuterol/ Ipratropium (Duoneb) 3 ml RTQID NEB Last administered on 02/02/18at 07:02; Start 02/01/18 at 08:00; Stop 02/02/18 at 07:59; Status DC Ceftriaxone Sodium 50 ml @ 100 mls/hr 1X ONCE IV ; Start 02/01/18 at 05:00; Stop 02/01/18 at 05:29; Status Cancel Azithromycin (Zithromax) 500 mg 1X ONCE PO Last administered on 02/01/18at 05: 57; Start 02/01/18 at 05:00; Stop 02/01/18 at 05:01; Status DC Ceftriaxone Sodium 1 gm/ Dextrose 50 ml @ 100 mls/hr Q24H IV ; Start 02/02/18 at 08:00; Status UNV Azithromycin 250 mg/Sodium Chloride 250 ml @ 250 mls/hr Q24H IV Last administered on 02/03/18at 08:13; Start 02/02/18 at 09:00; Stop 02/03/18 at 09 :09; Status DC Methylprednisolone Sodium Succinate (SOLU-Medrol 40MG VIAL) 80 mg Q8HRS IV Last administered on 02/02/18at 05:34; Start 02/01/18 at 14:00; Stop 02/02/18 at 09:05; Status DC Sodium Chloride 1,000 ml @ 50 mls/hr Q20H IV Last administered on 02/02/18at 05:34; Start 02/01/18 at 09:15; Stop 02/03/18 at 09:09; Status DC Ceftriaxone Sodium (Rocephin) 1 gm Q24H IVP Last administered on 02/03/18at 08: 14; Start 02/01/18 at 10:00; Stop 02/03/18 at 09:09; Status DC Iohexol (Omnipaque 240 Mg/ml) 30 ml 1X ONCE PO Last administered on at 10:45; Start 02/01/18 at 10:45; Stop 02/01/18 at 10:46; Status DC Iohexol (Omnipaque 300 Mg/ml) 75 ml 1X ONCE IV Last administered on at 12:34; Start 02/01/18 at 10:45; Stop 02/01/18 at 10:46; Status DC Info (CONTRAST GIVEN -- Rx MONITORING) 1 each PRN DAILY PRN MC SEE COMMENTS; Start 02/01/18 at 10:45; Stop 02/03/18 at 10:44; Status DC Methylprednisolone Sodium Succinate (SOLU-Medrol 40MG VIAL) 40 mg Q8HRS IV Last administered on 02/03/18at 05:46; Start 02/02/18 at 14:00; Stop 02/03/18 at 09:09; Status DC Albuterol/ Ipratropium (Duoneb) 3 ml RTQID NEB Last administered on 02/03/18at 05:50; Start 02/02/18 at 12:00 Pantoprazole Sodium (Protonix) 40 mg DAILYAC PO Last administered on at 05:46; Start 02/02/18 at 14:00 Polyethylene Glycol (miraLAX PACKET) 17 gm PRN DAILY PRN PO CONSTIPATION; Start 02/02/18 at 13:15 Lactobacillus Rhamnosus (Culturelle) 1 cap BID PO Last administered on at 08:13; Start 02/02/18 at 21:00 Prednisone (Prednisone) 10 mg DAILY PO ; Start 02/04/18 at 09:00 Azithromycin (Zithromax) 250 mg DAILY PO ; Start 02/04/18 at 09:00 Active Scripts Active Reported No Known Medications Prior To Admisstion (Info) Each 1 Each Vitals/I & O Vital Sign - Last 24 Hours 02/02/18 02/02/18 02/02/18 02/02/18 10:53 11:00 15:00 15:15 Temp 99.3 99.0 99.3 99.0 Pulse 95 91 Resp 18 14 B/P (MAP) 121/68 (85) 132/80 (97) Pulse Ox 89 91 93 O2 Delivery Room Air Room Air Room Air Room Air 02/02/18 02/02/18 02/02/18 02/03/18 19:00 20:00 23:00 03:00 Temp 98.5 98.2 97.8 98.5 98.2 97.8 Pulse 88 85 86 Resp 14 14 14 B/P (MAP) 133/78 (96) 131/78 (95) 153/97 (115) Pulse Ox 92 96 99 O2 Delivery Room Air Room Air Room Air Room Air 02/03/18 02/03/18 05:50 07:00 Temp 98.1 98.1 Pulse 96 Resp 16 B/P (MAP) 139/91 (107) Pulse Ox 95 O2 Delivery Room Air Room Air Intake and Output 02/02/18 02/02/18 02/03/18 15:00 23:00 07:00 Intake Total 240 ml 420 ml Output Total 650 ml 3050 ml Balance 240 ml -230 ml -3050 ml GEO PINEDO MD Feb 03, 2018 10:49
[2018-02-03] MEDS ORDERED: TIOT4MIS3 IH (11:19)
[2018-02-03 11:29] VITALS: BP 147/94
--- NOTE | 2018-02-03 11:52 | PDOC ---
PULMONARY PROGRESS NOTES Subjective no soa Vitals Vital Signs Date Time Temp Pulse Resp B/P (MAP) Pulse Ox O2 Delivery O2 Flow Rate FiO2 02/03/18 11:29 98.3 106 16 147/94 (111) 93 Room Air 98.3 General: Alert, No acute distress Lungs: Clear Cardiovascular: S1 Abdomen: Soft Neuro Exam: Alert Extremities: No Edema Skin: Warm Labs Laboratory Tests Test 02/01/18 13:55 02/02/18 03:25 02/03/18 03:40 Sodium Level 133 mmol/L (136-145) 137 mmol/L (136-145) 138 mmol/L (136-145) Potassium Level 4.2 mmol/L (3.5-5.1) 4.8 mmol/L (3.5-5.1) 4.9 mmol/L (3.5-5.1) Chloride Level 95 mmol/L (98-107) 100 mmol/L (98-107) 100 mmol/L (98-107) Carbon Dioxide Level 30 mmol/L (21-32) 30 mmol/L (21-32) 30 mmol/L (21-32) Anion Gap 8 (6-14) 7 (6-14) 8 (6-14) Blood Urea Nitrogen 10 mg/dL (8-26) 14 mg/dL (8-26) 17 mg/dL (8-26) Creatinine 0.7 mg/dL (0.7-1.3) 0.7 mg/dL (0.7-1.3) 0.7 mg/dL (0.7-1.3) Estimated GFR (Cockcroft-Gault) 137.4 137.4 137.4 Glucose Level 111 mg/dL (70-99) 103 mg/dL (70-99) 101 mg/dL (70-99) Calcium Level 9.4 mg/dL (8.5-10.1) 9.3 mg/dL (8.5-10.1) 9.1 mg/dL (8.5-10.1) White Blood Count 5.0 x10^3/uL (4.0-11.0) Red Blood Count 3.96 x10^6/uL (4.30-5.70) Hemoglobin 13.1 g/dL (13.0-17.5) Hematocrit 38.6 % (39.0-53.0) Mean Corpuscular Volume 98 fL (79-100) Mean Corpuscular Hemoglobin 33 pg (25-35) Mean Corpuscular Hemoglobin Concent 34 g/dL (31-37) Red Cell Distribution Width 12.7 % (11.5-14.5) Platelet Count 232 x10^3/uL (140-400) Neutrophils (%) (Auto) 92 % (31-73) Lymphocytes (%) (Auto) 5 % (24-48) Monocytes (%) (Auto) 2 % (0-9) Eosinophils (%) (Auto) 0 % (0-3) Basophils (%) (Auto) 0 % (0-3) Neutrophils # (Auto) 4.6 x10^3uL (1.8-7.7) Lymphocytes # (Auto) 0.3 x10^3/uL (1.0-4.8) Monocytes # (Auto) 0.1 x10^3/uL (0.0-1.1) Eosinophils # (Auto) 0.0 x10^3/uL (0.0-0.7) Basophils # (Auto) 0.0 x10^3/uL (0.0-0.2) Segmented Neutrophils % 96 % (35-66) Lymphocytes % 3 % (24-48) Monocytes % 1 % (0-10) Platelet Estimate Adequate (ADEQUATE) Laboratory Tests Test 02/03/18 03:40 Sodium Level 138 mmol/L (136-145) Potassium Level 4.9 mmol/L (3.5-5.1) Chloride Level 100 mmol/L (98-107) Carbon Dioxide Level 30 mmol/L (21-32) Anion Gap 8 (6-14) Blood Urea Nitrogen 17 mg/dL (8-26) Creatinine 0.7 mg/dL (0.7-1.3) Estimated GFR (Cockcroft-Gault) 137.4 Glucose Level 101 mg/dL (70-99) Calcium Level 9.1 mg/dL (8.5-10.1) Medications Active Scripts Medications Dose Route/Sig Max Daily Dose Days Date Category No Known Medications Prior To Admisstion (Info) Each 1 Each 02/01/18 Reported Impression . 1. Confusion, probably related to hyponatremia, improved. 2. Low-grade fever, could be related to acute bronchitis. No definite consolidation seen on the CT chest. 3. Extensive end-stage bullous lung disease and emphysema. 4. Subjective weight loss, but no obvious pathology seen in the lungs. Plan . 1. Smoking cessation counseling was provided. 2. Antibiotics, 3. Follow up on sodium. It is improved. 4. No obvious malignancy seen on CT chest, abdomen and pelvis. 5. Pulmonary function tests as an outpatient. 6. Could be discharged today d/w AWDE CROWELL MD Feb 03, 2018 11:51
[2018-02-03 15:00] VITALS: BP 138/90
--- NOTE | 2018-02-03 15:18 | PDOC2 ---
NEUROLOGY CONSULT Date of Admission Date of Admission DATE: 02/03/18 TIME: 15:13 Reason for Consult Reason for Consult: Confusion Referring Physician Referring Physician: Dr. Denney Source Source: Caregiver (son), Chart review, Patient History of Present Illness History of Present Illness The patient is a 62-year-old right-handed male who says he is here for constipation which has resolved. His son tells me the patient has been increasingly confused over the last several weeks. He repeats conversations and forgets where he is. He was trying to go to work in [employer] even though he retired years ago. He has been living on his own taking care of his own cooking , cleaning, finances, and driving to go shopping. He has never had a stroke, seizure, or head injury. He has not seen a doctor in a while. Past Medical History Pulmonary: COPD GI: Peptic Ulcer disease Past Surgical History Past Surgical History: Other (lung) Family History Family History: No pertinent hx Social History Social History , denies alcohol or tobacco, retired Current Medications Current Medications Current Medications Sodium Chloride 1,000 ml @ 1,000 mls/hr 1X ONCE IV Last administered on 02/01at 02:27; Start 02/01/18 at 02:30; Stop 02/01/18 at 03:29; Status DC Albuterol/ Ipratropium (Duoneb) 3 ml 1X ONCE NEB Last administered on at 02:36; Start 02/01/18 at 02:30; Stop 02/01/18 at 02:39; Status DC Methylprednisolone Sodium Succinate (SOLU-Medrol 125MG VIAL) 125 mg 1X ONCE IV Last administered on 02/01/18at 02:36; Start 02/01/18 at 02:30; Stop at 02:39; Status DC Sodium Chloride 1,000 ml @ 50 mls/hr Q20H IV Last administered on 02/01/18at 05:56; Start 02/01/18 at 05:00; Stop 02/02/18 at 04:59; Status DC Acetaminophen (Tylenol) 650 mg PRN Q4HRS PRN PO FEVER; Start 02/01/18 at 04:15 ; Stop 02/02/18 at 04:15; Status DC Albuterol/ Ipratropium (Duoneb) 3 ml RTQID NEB Last administered on 02/02/18at 07:02; Start 02/01/18 at 08:00; Stop 02/02/18 at 07:59; Status DC Ceftriaxone Sodium 50 ml @ 100 mls/hr 1X ONCE IV ; Start 02/01/18 at 05:00; Stop 02/01/18 at 05:29; Status Cancel Azithromycin (Zithromax) 500 mg 1X ONCE PO Last administered on 02/01/18at 05: 57; Start 02/01/18 at 05:00; Stop 02/01/18 at 05:01; Status DC Ceftriaxone Sodium 1 gm/ Dextrose 50 ml @ 100 mls/hr Q24H IV ; Start 02/02/18 at 08:00; Status UNV Azithromycin 250 mg/Sodium Chloride 250 ml @ 250 mls/hr Q24H IV Last administered on 02/03/18at 08:13; Start 02/02/18 at 09:00; Stop 02/03/18 at 09 :09; Status DC Methylprednisolone Sodium Succinate (SOLU-Medrol 40MG VIAL) 80 mg Q8HRS IV Last administered on 02/02/18at 05:34; Start 02/01/18 at 14:00; Stop 02/02/18 at 09:05; Status DC Sodium Chloride 1,000 ml @ 50 mls/hr Q20H IV Last administered on 02/02/18at 05:34; Start 02/01/18 at 09:15; Stop 02/03/18 at 09:09; Status DC Ceftriaxone Sodium (Rocephin) 1 gm Q24H IVP Last administered on 02/03/18at 08: 14; Start 02/01/18 at 10:00; Stop 02/03/18 at 09:09; Status DC Iohexol (Omnipaque 240 Mg/ml) 30 ml 1X ONCE PO Last administered on at 10:45; Start 02/01/18 at 10:45; Stop 02/01/18 at 10:46; Status DC Iohexol (Omnipaque 300 Mg/ml) 75 ml 1X ONCE IV Last administered on at 12:34; Start 02/01/18 at 10:45; Stop 02/01/18 at 10:46; Status DC Info (CONTRAST GIVEN -- Rx MONITORING) 1 each PRN DAILY PRN MC SEE COMMENTS; Start 02/01/18 at 10:45; Stop 02/03/18 at 10:44; Status DC Methylprednisolone Sodium Succinate (SOLU-Medrol 40MG VIAL) 40 mg Q8HRS IV Last administered on 02/03/18at 05:46; Start 02/02/18 at 14:00; Stop 02/03/18 at 09:09; Status DC Albuterol/ Ipratropium (Duoneb) 3 ml RTQID NEB Last administered on 02/03/18at 10:59; Start 02/02/18 at 12:00 Pantoprazole Sodium (Protonix) 40 mg DAILYAC PO Last administered on at 05:46; Start 02/02/18 at 14:00 Polyethylene Glycol (miraLAX PACKET) 17 gm PRN DAILY PRN PO CONSTIPATION; Start 02/02/18 at 13:15 Lactobacillus Rhamnosus (Culturelle) 1 cap BID PO Last administered on at 08:13; Start 02/02/18 at 21:00 Prednisone (Prednisone) 10 mg DAILY PO ; Start 02/04/18 at 09:00 Azithromycin (Zithromax) 250 mg DAILY PO ; Start 02/04/18 at 09:00 Active Scripts Active Reported No Known Medications Prior To Admisstion (Info) Each 1 Each Allergies Allergies: Coded Allergies: No Known Drug Allergies (Unverified , 02/01/18) ROS Review of System Patient denies fevers, chills, weight loss, dyspnea, angina, abdominal pain, change in bowels, or dysuria. 14-point review of systems is negative. Physical Exam Physical Examination General: Well-developed, well-nourished, black male, in no acute distress HEENT: Normocephalic andatraumatic.Temporal arteriespulsatile and nontender. Neck: Supple without bruit, no meningismus Musculoskeletal: Stability:see neurologic. Gait exam:see neurologic. Tone:see neurologic. Strength:see neurologic. Neurological: Mental Status: orientation, memory, attention span/concentration, language, fund of knowledge: He is alert, knows the location and the date. At first he says that it is February 02 second. He does not want to name the president but does so after a while. He names, repeats, and comprehends well. Speech is fluent. He does talk to me about going back to work and having his daughter-in- law pharmacy picking tech his car today. Cranial Nerves:Pupils equal and reactive to light, extraocular movements areintact, visual dudley are full to confrontation. Facial sensation is normal. There is no facial asymmetry. Vestibulo-ocular reflex is intact. Palate elvates and tongue protrudes in midline. All other cranial related problems are negative except as mentioned before.Reflexes:2+ and symmetric with flexor plantar responses. Motor:5/5 strength with normal tone and bulk. Coordination:Finger-nose finger and lilq-pa-dshp testing are normal. Rapid alternating movements and fine finger movements are intact. Gait: Normal, including tandem. Sensory:Normal pinprick, vibration, light touch, proprioception. Vitals VITALS Vital Signs Date Time Temp Pulse Resp B/P (MAP) Pulse Ox O2 Delivery O2 Flow Rate FiO2 02/03/18 11:29 98.3 106 16 147/94 (111) 93 Room Air 98.3 Labs Labs Laboratory Tests Test 02/02/18 03:25 02/03/18 03:40 White Blood Count 5.0 x10^3/uL (4.0-11.0) Red Blood Count 3.96 x10^6/uL (4.30-5.70) Hemoglobin 13.1 g/dL (13.0-17.5) Hematocrit 38.6 % (39.0-53.0) Mean Corpuscular Volume 98 fL (79-100) Mean Corpuscular Hemoglobin 33 pg (25-35) Mean Corpuscular Hemoglobin Concent 34 g/dL (31-37) Red Cell Distribution Width 12.7 % (11.5-14.5) Platelet Count 232 x10^3/uL (140-400) Neutrophils (%) (Auto) 92 % (31-73) Lymphocytes (%) (Auto) 5 % (24-48) Monocytes (%) (Auto) 2 % (0-9) Eosinophils (%) (Auto) 0 % (0-3) Basophils (%) (Auto) 0 % (0-3) Neutrophils # (Auto) 4.6 x10^3uL (1.8-7.7) Lymphocytes # (Auto) 0.3 x10^3/uL (1.0-4.8) Monocytes # (Auto) 0.1 x10^3/uL (0.0-1.1) Eosinophils # (Auto) 0.0 x10^3/uL (0.0-0.7) Basophils # (Auto) 0.0 x10^3/uL (0.0-0.2) Segmented Neutrophils % 96 % (35-66) Lymphocytes % 3 % (24-48) Monocytes % 1 % (0-10) Platelet Estimate Adequate (ADEQUATE) Sodium Level 137 mmol/L (136-145) 138 mmol/L (136-145) Potassium Level 4.8 mmol/L (3.5-5.1) 4.9 mmol/L (3.5-5.1) Chloride Level 100 mmol/L (98-107) 100 mmol/L (98-107) Carbon Dioxide Level 30 mmol/L (21-32) 30 mmol/L (21-32) Anion Gap 7 (6-14) 8 (6-14) Blood Urea Nitrogen 14 mg/dL (8-26) 17 mg/dL (8-26) Creatinine 0.7 mg/dL (0.7-1.3) 0.7 mg/dL (0.7-1.3) Estimated GFR (Cockcroft-Gault) 137.4 137.4 Glucose Level 103 mg/dL (70-99) 101 mg/dL (70-99) Calcium Level 9.3 mg/dL (8.5-10.1) 9.1 mg/dL (8.5-10.1) Laboratory Tests Test 02/03/18 03:40 Sodium Level 138 mmol/L (136-145) Potassium Level 4.9 mmol/L (3.5-5.1) Chloride Level 100 mmol/L (98-107) Carbon Dioxide Level 30 mmol/L (21-32) Anion Gap 8 (6-14) Blood Urea Nitrogen 17 mg/dL (8-26) Creatinine 0.7 mg/dL (0.7-1.3) Estimated GFR (Cockcroft-Gault) 137.4 Glucose Level 101 mg/dL (70-99) Calcium Level 9.1 mg/dL (8.5-10.1) Images Images CT head: No pathologic extra-axial or intra-axial fluid collection. The ventricles and basal cisterns are within normal limits. No acute intracranial bleed. No focal enhancing metastatic spine lesions in the brain. There is mild confluent low-attenuation is seen in the periventricular and deep white matter. No focal loss of murcia-white differentiation. The dural venous sinuses are patent. Orbits within normal limits. No suspicious calvarial lesion. Visualized paranasal sinuses and mastoid air cells are clear. IMPRESSION: No acute findings. Assessment/Plan Assessment/Plan Impression: Superficially he has a rather normal mental status exam, he does make some errors pointing to frontal executive dysfunction. He may have frontal temporal dementia. Head CT is negative. Acute problems with hyponatremia, resolving, gastrointestinal symptoms, resolving. Recommendations: Because of the somewhat atypical presentation and also possible fluctuation of mental status, I will check an EEG to exclude seizures Additional laboratory studies I rather he would follow-up in my office as an outpatient and I can go over his mental status again before making a definitive diagnosis of any dementia. I discussed also with the patient's son. Thank you for letting me help with the patient's care JEANNETTE HUFF MD Feb 03, 2018 15:18
[2018-02-03 19:00] VITALS: BP 131/81
[2018-02-03 23:00] VITALS: BP 126/84
[2018-02-04 03:00] VITALS: BP 126/84
[2018-02-04] MEDS: PANTOPRAZOLE 40 MG TABLET.DR. PO SCH (06:04)
[2018-02-04 06:58] LABS: INFLUENZA A PATIENT NEGATIVE (NEGATIVE); INFLUENZA B PATIENT NEGATIVE (NEGATIVE)
[2018-02-04 07:00] VITALS: BP 114/61
[2018-02-04] MEDS: IPRATRPIUM/ALBUTEROL 0.5/2.5MG 3 ML NEBU. NEB SCH (08:00)
[2018-02-04] MEDS ORDERED: AZITHROMYCIN 250 MG TABLET. PO SCH (09:00)
[2018-02-04] MEDS ORDERED: predniSONE 10 MG TABLET PO SCH (09:00)
[2018-02-04] MEDS: LACTOBACILLUS RHAMNOSUS GG 1 CAPSULE. PO SCH (09:39)
--- NOTE | 2018-02-04 09:52 | PDOC ---
PROGRESS NOTES Subjective Subjective ready to go home Objective Objective Vital Signs Date Time Temp Pulse Resp B/P (MAP) Pulse Ox O2 Delivery O2 Flow Rate FiO2 02/04/18 07:00 98.0 96 16 114/61 (78) 94 Room Air 98.0 Physical Exam Abdomen: Normal bowel sounds, Soft Heart: Normal S1, Normal S2 Extremities: No clubbing General: Alert HEENT: Atraumatic Lungs: Other (dec breath sounds from emphysema) Neck: Supple Neuro: Normal speech Psych/Mental Status: Mental status NL Skin: No breakdown Diagnosis Problem List Problems Medical Problems: (1) Altered mental status Status: Acute (2) Pneumonia Status: Acute Assessment Assessment Problems Medical Problems: (1) Altered mental status Status: Acute (2) Pneumonia Status: Acute FINAL IMPRESSION: 1. Confusion looks like chronic.?dementia frontal lobe 2. Hyponatremia.Na 123, corrected 3. Chronic emphysema. 4. Scarring in the lungs, no pneumonitis. 5. Weight loss. 6. Active Smoker PLAN: appreciate neuro consult EEG done today CT head neg. ct chest sever emphysema and bulla. ct abd diverticulosis. Na 137, corrected. pul consult appreciated,discussed with dr Bartlett, f/u office for PFT GI consult noted ,needs colonoscopy/EGD out pt pt refusing flue and pneumovax home today, spoke with social service Plan Plan of Care Problems Medical Problems: (1) Altered mental status Status: Acute (2) Pneumonia Status: Acute Comment Review of Relevant I have reviewed the following items parviz (where applicable) has been applied. Labs Laboratory Tests Test 02/04/18 04:15 02/04/18 06:30 Erythrocyte Sedimentation Rate 6 (0-15) Vitamin B12 Level 461 pg/mL (247-911) Thyroid Stimulating Hormone (TSH) 2.213 uIU/mL (0.358-3.74) Influenza Type A Antigen Negative (NEGATIVE) Influenza Type B Antigen Negative (NEGATIVE) Microbiology 02/01/18 Blood Culture - Preliminary, Resulted NO GROWTH AFTER 3 DAYS Medications Current Medications Azithromycin (Zithromax) 250 mg DAILY PO Last administered on 02/04/18at 09:39; Start 02/04/18 at 09:00 Prednisone (Prednisone) 10 mg DAILY PO Last administered on 02/04/18at 09:38; Start 02/04/18 at 09:00 Vitals/I & O Vital Sign - Last 24 Hours 02/03/18 02/03/18 02/03/18 02/03/18 11:00 11:29 15:00 15:13 Temp 98.3 98.2 98.3 98.2 Pulse 106 98 Resp 16 16 B/P (MAP) 147/94 (111) 138/90 (106) Pulse Ox 93 96 O2 Delivery Room Air Room Air Room Air Room Air 02/03/18 02/03/18 02/03/18 02/03/18 19:00 19:33 20:00 23:00 Temp 98.1 98.8 98.1 98.8 Pulse 110 100 Resp 16 16 B/P (MAP) 131/81 (98) 126/84 (98) Pulse Ox 96 96 O2 Delivery Room Air Room Air Room Air Room Air 02/04/18 02/04/18 03:00 07:00 Temp 98.8 98.0 98.8 98.0 Pulse 100 96 Resp 16 16 B/P (MAP) 126/84 (98) 114/61 (78) Pulse Ox 96 94 O2 Delivery Room Air Room Air FABIENNE ALLEN MD Feb 04, 2018 09:52
--- NOTE | 2018-02-04 11:03 | PDOC ---
Objective: Objective: Per RN - DC today. He has reported loose stools, not witnessed, no stools charted. Vital Signs: Vital Signs Date Time Temp Pulse Resp B/P (MAP) Pulse Ox O2 Delivery O2 Flow Rate FiO2 02/04/18 08:00 Room Air 02/04/18 07:00 98.0 96 16 114/61 (78) 94 98.0 Labs: Laboratory Tests Test 02/04/18 04:15 02/04/18 06:30 Erythrocyte Sedimentation Rate 6 Vitamin B12 Level 461 pg/mL Thyroid Stimulating Hormone (TSH) 2.213 uIU/mL Influenza Type A Antigen Negative Influenza Type B Antigen Negative PE: no exam - in shower A/P: Emphysema ?dyspepsia, ?irregular bowel habits -- DC per primary Outpt EGD and colonoscopy at some point. DREW HERNÁNDEZ Feb 04, 2018 11:03
--- NOTE | 2018-02-04 16:17 | EEG ---
DATE OF SERVICE: 02/04/2018 ATTENDING PHYSICIAN: Alex Denney MD. EEG NUMBER: [id number] performed on 02/04/2018. OBJECTIVE: The patient is a 62-year-old male with confusion. DESCRIPTION: This is a digital study. Electrodes are placed according to the international 10-20 system. Bipolar and referential montages are available. Activation procedures typically include hyperventilation and intermittent photic stimulation. INTERPRETATION: The waking background consists of 8 Hz, 50-100 microvolt activity, symmetrically distributed over parietooccipital regions and reactive to eye opening. Hyperventilation and intermittent photic stimulation are noncontributory. Stage 1 sleep is achieved with normal electroencephalogram patterns. IMPRESSION: This electroencephalogram with the patient awake and asleep is within normal limits. There is no focal, paroxysmal, or epileptiform activity. Thank you for letting us help with the patient's care. JEANNETTE HUFF MD DR: JOSE ALFREDO/spenser JOB#: [id number] / [id number]
--- NOTE | 2018-02-06 12:39 | PDOC ---
Provider Note Provider Note Discharge summary dictated. #[id number] FABIENNE ALLEN MD Feb 06, 2018 12:39
--- NOTE | 2018-02-06 13:45 | DS ---
DATE OF DISCHARGE: 02/04/2018 REASON FOR ADMISSION TO THE HOSPITAL: 1. Confusion. 2. Hyponatremia. 3. Severe emphysema. 4. Weight loss. CONSULTATIONS: Jaswant Zavala MD, Neurology; Car Delgado MD, Hematology; GI, Joseph Jenkins MD; Shine Bartlett MD, Pulmonology. PROCEDURES DONE: 1. CT head. 2. CT chest. 3. CT of abdomen and pelvis. 4. EEG. HOSPITAL COURSE: The patient is a 62-year-old male patient who has been retired for some time, but on the day of admission, he was confused. He thought he has to go to work and he was talking funny, he was brought to the hospital. CT head was negative. His sodium was low at 122. The patient was given normal line and his sodium went up nicely back to normal range. The patient has been having weight loss. Seen Dr. Delgado, has recommended outpatient EGD, colonoscopy. The patient was having a lot of abdominal pain, constipation, seen by GI. CT scan of the abdomen shows diverticulosis. Recommend stool softer. Recommend outpatient EGD, colonoscopy. The patient has severe emphysema. CT scan shows emphysema and bullous emphysema was seen by Pulmonology. The patient was given smoking counseling and the patient refused flu and pneumonia shots. Dr. Solano, Neurology thought probably the patient could have front lobe dementia, recommended to follow as outpatient. Had EEG, which was negative for seizure activity. On the whole, the patient's condition improved and he was discharged. FINAL DIAGNOSES: 1. Confusion, probably secondary to frontal lobe dementia, maybe. 2. Hyponatremia, contributing to his confusion. 3. Chronic severe emphysema with bullous emphysema. 4. Weight loss. Needs outpatient EGD and colonoscopy. 5. Diverticulosis. 6. Smoking addiction. DISPOSITION: Home. See [facility] for his medications. Smoking counseling was done. Recommend outpatient EGD and colonoscopy. Follow with PCP, Dr. Tobar in 1 week. The patient refused flu and pneumonia shots. FABIENNE ALLEN MD DR: NEDRA/spenser JOB#: [id number] / [id number]
== END 2018-02-04 11:36 | disposition home or self-care (01) | DRG 56 ==
LOC: ER 01:36 → CVICU 04:17 → 4 NORTH 05:01
PROVIDERS: ADMIT Internal Medicine; ATTEND Internal Medicine
DX: G31.09 Other frontotemporal neurocognitive disorder (principal); J18.9 Pneumonia, unspecified organism; E87.1 Hypo-osmolality and hyponatremia; J44.0 Chronic obstructive pulmonary disease with (acute) lower respiratory infection; F17.210 Nicotine dependence, cigarettes, uncomplicated; R63.4 Abnormal weight loss; F02.80 Dementia in other diseases classified elsewhere, unspecified severity, without behavioral disturbance, psychotic disturbance, mood disturbance, and anxiety; K57.90 Diverticulosis of intestine, part unspecified, without perforation or abscess without bleeding; Z71.6 Tobacco abuse counseling; Z68.20 Body mass index [BMI] 20.0-20.9, adult; Z87.11 Personal history of peptic ulcer disease; Z79.899 Other long term (current) drug therapy
CPT/HCPCS: 36415; 70470; 71046; 71260; 74177; 80048; 80053; 81001; 82140; 82607; 83735; 83880; 84443; 84484; 85007; 85025; 85610; 85651; 87040; 87804; 93005; 94640; 94760; 95816; 96361; 96374; J0456; J0696; J2920; J2930; J7030; J7050; J7512; J7620; Q0144; Q9966; Q9967; 99285-25